=== PATIENT | female | born 1985 | race Two or more races ===

== ENCOUNTER 2018-05-15 15:34 | Observation (INO) | payer OTHER ==
[~2018-05-15] VITALS: Ht 152.4 cm; Wt 49.4 kg
[2018-05-15] MEDS ORDERED: PNV1TABL54 PO (16:42)
[2018-05-15 16:43] VITALS: BP 113/79
== END 2018-05-15 22:50 | disposition home or self-care (01) ==
LOC: 4S 15:34
PROVIDERS: ADMIT Obstetrics & Gynecology; ATTEND Obstetrics & Gynecology
DX: O62.9 Abnormality of forces of labor, unspecified (principal); Z3A.37 37 weeks gestation of pregnancy
CPT/HCPCS: 76811; 81002; G0378

== ENCOUNTER 2018-05-20 09:30 | Inpatient (IN) | payer OTHER ==
[~2018-05-20] VITALS: Ht 152.4 cm; Wt 49.0 kg
[~2018-05-20 09:30] MED LIST: PNV1TABL54 PO
[2018-05-20] MEDS ORDERED: RINGERS SOLUTION,LACTATED 1,000 ML IV PRN (09:52)
[2018-05-20] MEDS ORDERED: OXYTOCIN 30 UNITS/LACT RINGERS 500 ML IV PRN (09:52)
[2018-05-20 09:58] VITALS: BP 118/81
[2018-05-20] MEDS ORDERED: METOCLOPRAMIDE HCL 5 MG/ML 2 ML VIAL IVP PRN (10:00)
[2018-05-20] MEDS ORDERED: CITRIC ACID/SODIUM CITRATE 30 ML SOLUTION UDCUP PO PRN (10:00)
[2018-05-20] MEDS: RINGERS SOLUTION,LACTATED 1,000 ML IV SCH ×3 (10:13→23:16)
[2018-05-20 10:59] LABS: BASOPHILS % (AUTO) 0.2 % (0.0-2.0); EOSINOPHILS % (AUTO) 1.3 % (1.0-6.0); HEMATOCRIT 37.3 % (36-46); HEMOGLOBIN 12.8 g/dL (12.0-16.0); LYMPHOCYTES # (AUTO) 1.4 K/uL (1.0-4.8); LYMPHOCYTES % (AUTO) 15.5 % (22.0-44.0); MEAN CORPUSCULAR HGB CONC 34.3 G/dL (31.0-37.0); MEAN CORPUSCULAR VOLUME 94 fL (80-100); MONOCYTES # (AUTO) 0.8 K/uL (0.1-1.0); MONOCYTES % (AUTO) 8.9 % (2.0-9.0); NEUTROPHILS # (AUTO) 6.9 K/uL (1.8-7.7); NEUTROPHILS % (AUTO) 74.1 % (40.0-70.0); PLATELET COUNT (AUTO) 208 K/uL (150-450); RED BLOOD CELL COUNT(AUTO) 3.98 MIL/uL (4.00-5.20); RED CELL DISTRIBUTION WIDTH 16.8 % (11.5-14.5)
[2018-05-20] MEDS ORDERED: MISOPROSTOL 25 MCG TABLET ONE (11:12)
[2018-05-20] MEDS: MISOPROSTOL 25 MCG TABLET PO SCH ×2 (11:16→15:22)
[2018-05-20] MEDS ORDERED: MISOPROSTOL 50 MCG TABLET PO ONE (19:00)
[2018-05-20] MEDS ORDERED: OXYGEN THERAPY IH SCH (20:00)
[2018-05-20] MEDS ORDERED: ROPIVACAINE HCL/PF 0.2% 100 ML ED ONE (22:40)
[2018-05-20] MEDS ORDERED: ROPIVACAINE HCL/PF 0.2% 100 ML ED PRN (23:15)
[2018-05-20] MEDS ORDERED: DiphenhydrAMINE HCL 50 MG/ML VIAL IVP PRN (23:15)
[2018-05-20] MEDS ORDERED: ONDANSETRON HCL 4 MG/2 ML VIAL IVP PRN (23:15)
[2018-05-21] MEDS ORDERED: AMPICILLIN SODIUM 2 GM/NS 100 ML IV ONE
[2018-05-21] MEDS ORDERED: OXYTOCIN 30 UNITS/LACT RINGERS 500 ML IV PRN (01:00)
[2018-05-21] MEDS: RINGERS SOLUTION,LACTATED 1,000 ML IV SCH (01:38)
[2018-05-21] MEDS ORDERED: RINGERS SOLUTION,LACTATED 1,000 ML IV ONE (02:44)
[2018-05-21] MEDS ORDERED: LANOLIN 7 GM OINTMENT TP PRN (02:45)
[2018-05-21] MEDS ORDERED: OxyCODONE HCL/ACETAMINOPHEN 5-325 MG TABLET PO PRN ×2 (02:45)
[2018-05-21] MEDS ORDERED: MEASLES/MUMPS/RUBELLA VACCINE, LIVE 0.5 ML/VIAL SQ ONE (02:45)
[2018-05-21] MEDS ORDERED: GLYCERIN/WITCH HAZEL LEAF 40 PADS JAR TP PRN (02:45)
[2018-05-21] MEDS ORDERED: IBUPROFEN 600 MG TABLET PO PRN (02:45)
[2018-05-21] MEDS ORDERED: BENZOCAINE 20%/MENTHOL 56 GM SPRAY CANISTER TP PRN (02:45)
[2018-05-21] MEDS ORDERED: AMPICILLIN SODIUM 1 GM/NS 50 ML IV SCH (04:00)
[2018-05-21] MEDS: MAGNESIUM HYDROXIDE SUSPENSION 30 ML UDCUP PO SCH ×2 (08:58→21:00)
[2018-05-22] MEDS ORDERED: IBUP-2071 PO (13:56)
[2018-05-22] MEDS ORDERED: DSS100 PO (13:57)
== END 2018-05-22 17:20 | disposition home or self-care (01) | DRG 807 ==
LOC: 4S 09:30 → OBSVTOIN 09:30
PROVIDERS: ADMIT Obstetrics & Gynecology; ATTEND Obstetrics & Gynecology
PROC: 0HQ9XZZ Repair Perineum Skin, External Approach (ICD-10-PCS; principal; 2018-05-21)
PROC: 10E0XZZ Delivery of Products of Conception, External Approach (ICD-10-PCS; 2018-05-21)
PROC: 3E0R3BZ Introduction of Anesthetic Agent into Spinal Canal, Percutaneous Approach (ICD-10-PCS; 2018-05-21)
PROC: 00HU33Z Insertion of Infusion Device into Spinal Canal, Percutaneous Approach (ICD-10-PCS; 2018-05-21)
DX: O36.5930 Maternal care for other known or suspected poor fetal growth, third trimester, not applicable or unspecified (principal); Z37.0 Single live birth; O70.0 First degree perineal laceration during delivery; Z3A.38 38 weeks gestation of pregnancy
CPT/HCPCS: 86850; 86900; 86901; J0290; J2590; J2795; J7120